=== PATIENT | male | born 1940 | race Caucasian/White ===

== ENCOUNTER 2025-06-22 10:23 | Observation (INO) ==
[2025-06-22] MEDS ORDERED: METOPROLOL TARTRATE 1 MG/ML VIAL IV PRN (10:30)
--- NOTE | 2025-06-22 10:45 | Emergency Department Note ---
Impression & Plan Atrial fibrillation with rapid ventricular response, Hypothyroidism, Acute kidney injury, Alzheimer's dementia ED Provider Note NAME: AUGUSTIN KRISHNAMURTHY AGE: 85 SEX: M : 1940 ARRIVES VIA: Ambulance INFORMANT: Patient, ED PROVIDER(S): Talon Orourke MD CHIEF COMPLAINT: Dizziness MEDICAL DECISION MAKING: Patient presents due to concern for dizziness. EKG did show A-fib with RVR. IV was established and blood work was obtained. Metoprolol 5 mg every 5 minutes ordered; however, as the patient's blood pressure was low ordered IV fluids and will defer rate control medication at this time. Blood work shows a normal white count hemoglobin of 13.1 with a platelet count of 128. The patient's kidney function with a creatinine of 1.75. Other electrolytes grossly unremarkable with negative troponin. The patient's chest x-ray is unremarkable. As this is new onset A-fib believe the patient would benefit from admission for further monitoring and starting of blood thinner. I did speak with the patient's family at bedside and they were comfortable plan of care as this patient he was initially hesitant. Heparin initially ordered but after discussion with the hospitalist they will prefer to start a DOAC and this was deferred to the inpatient service. Patient was admitted by Dr. Contreras. Discussion w/ other healthcare providers: Dr. Contreras inpatient medicine service Prior /Outside records reviewed: None Differential diagnosis: Benign positional vertigo, dehydration, hypovolemia, anemia, infection, hypoglycemia, electrolyte abnormalities, arrhythmia, tox among others were considered. Diagnostics, as interpreted by me: ECG: A-fib RVR, rate of 126, wide QRS, left bundle branch block pattern, normal axis. Prolonged QTc no obvious Sgarbossa criteria. Cardiac monitoring: An order was placed for continuous cardiac monitoring. The monitor shows a rate of 105 with tachycardic and irregular irregular rhythm. Patient was placed on pulse oximetry Medical decision rules: [id number] score Imaging studies: I informally interpreted the patient's chest x-ray does not show obvious pneumonia with formal report to follow. HPI: Patient presents due to concern for dizziness which she noticed around 02/14/1930 this morning. It was persistent this presented here. The patient is visiting from the [place] area. He denies any alcohol tobacco or drug use. The patient does take chronic medications he does have a history of thyroid replacement. Patient denies any known prior history of A-fib. Patient states that has been eating and drinking well. Patient denies any falls or trauma. PAST MEDICAL HISTORY: Alzheimer's, hypothyroidism PAST SURGICAL HISTORY: No pertinent past surgical history SOCIAL HISTORY: See Below HOME MEDICATIONS: See Below ALLERGIES: See Below VITALS: See Below PHYSICAL EXAMINATION: GENERAL: NAD, non-toxic. EYE EXAM: Normal conjunctiva. PERRL, no anisocoria and EOM's grossly intact w/o pain. OROPHARYNX: Moist mucus membranes, grossly normal dentition. NECK: Trachea midline, no stridor. LUNGS: Clear to auscultation. Normal chest wall mechanics. HEART: Irregularly irregular and tachycardic, no MRG. ABDOMEN: Abdomen soft, non-tender, no masses, no rebound or guarding. BACK: No CVA TTP. SKIN: No rashes and no bruising. UPPER EXTREMITIES: Upper extremities are grossly normal. LOWER EXTREMITIES: Grossly normal, no edema. NEURO EXAM: Awake and alert, follows commands, no obvious facial asymmetry, normal speech, moves all 4 extremities. 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 Alzheimer's dementia (Acute) Hypothyroidism (Acute) Acute kidney injury (Acute) Atrial fibrillation with rapid ventricular response (Acute) Social History Smoking Status: Unknown if ever smoked Preferred Language: Frisian Feels Safe at Home: Yes Home Meds Home Medications Medication Instructions Recorded Confirmed donepezil 10 mg tablet 10 mg PO DAILY 06/22/25 06/22/25 gabapentin 100 mg capsule 200 mg PO HS 06/22/25 06/22/25 levothyroxine 25 mcg tablet 25 mcg PO QAM 06/22/25 06/22/25 memantine 14 mg capsule 14 mg PO DAILY 06/22/25 06/22/25 sprinkle,extended release 24hr Results & Data (ED) Vital Signs Vital Signs - 24 hr 06/22/25 10:30 06/22/25 10:30 06/22/25 10:45 Pulse Rate 114 H Pulse Rate [Apical] 114 H 113 H Respiratory Rate 20 20 20 Blood Pressure 74/45 L Blood Pressure [Right Arm] 74/45 L 94/61 L Blood Pressure Mean 54 Blood Pressure Mean [Right Arm] 54 72 Pulse Oximetry 98 98 100 Oxygen Delivery Method Room Air Room Air Room Air Sepsis Recent Fever Within 48 Hours No Sepsis New/Unexplained Change in Mental Status Yes Sepsis Action Taken by Nursing Physician Notified 06/22/25 11:00 06/22/25 12:05 Pulse Rate 112 H Pulse Rate [Apical] 105 H Respiratory Rate 16 Blood Pressure Blood Pressure [Right Arm] 93/59 L Blood Pressure Mean Blood Pressure Mean [Right Arm] 70 Pulse Oximetry 97 Oxygen Delivery Method Room Air Sepsis Recent Fever Within 48 Hours Sepsis New/Unexplained Change in Mental Status Sepsis Action Taken by [facility] Medications Current Medication List: was personally reviewed by me Laboratory Data Attestation: I reviewed the patient's lab results. 06/22/25 10:32 06/22/25 10:32 Lab Results 06/22/25 06/22/25 Range/Units 10:32 10:42 WBC 6.70 (4.8-10.8) K/ul RBC 4.26 L (4.70-6.10) M/uL Hgb 13.1 L (14.0-18.0) g/dl POC Hgb 13.6 L (14.0-18.0) g/dl Hct 40.4 L (42.0-52.0) % POC Hct 40 L (42-52) % MCV 94.8 (80.0-100.0) fL MCH 30.8 (25.0-34.0) pg MCHC 32.4 (32.0-36.0) g/dL RDW Std Deviation 49.5 H (36.4-46.3) fL RDW Coeff of Marilee 14.2 (11.5-14.5) % Plt Count 128 L (130-400) K/uL MPV 11.7 (9.4-12.4) fL Immature Gran % (Auto) 0.3 % Neut % (Auto) 67.0 % Lymph % (Auto) 19.7 % Reeves % (Auto) 10.4 % Eos % (Auto) 2.2 % Baso % (Auto) 0.4 % Neut # (Auto) 4.48 (1.40-6.50) K/uL Lymph # (Auto) 1.32 (1.20-3.40) K/uL Reeves # (Auto) 0.70 H (0.11-0.59) K/uL Eos # (Auto) 0.15 (0.00-0.50) K/uL Baso # (Auto) 0.03 (0.00-0.20) K/uL Immature Gran # (Auto) 0.02 (0.01-0.20) K/uL PT 11.2 (9.0-12.0) Seconds INR 1.1 (0.9-1.1) APTT 26 (21-31) Seconds PTT Ratio 1.0 POC Sodium 141 (135-144) mmol/L Sodium 139 (136-145) mmol/L POC Potassium 4.6 (3.3-5.0) mmol/L Potassium 4.3 (3.5-5.1) mmol/L POC Chloride 104 (101-112) mmol/L Chloride 107 (98-107) mmol/L Carbon Dioxide 30 (21-32) mmol/L POC Total CO2 27 (24-31) mmol/L Anion Gap 2 L (3-11) POC Anion Gap 15.0 L (16-25) mmol/L POC BUN 31 H (7-18) mg/dl BUN 30 H (6-23) mg/dl Creatinine 1.75 H (0.6-1.4) mg/dl POC Creatinine 1.8 H (0.6-1.3) mg/dl Est Cr Clr Drug Dosing 28.0 ml/min eGFR 37.45 BUN/Creatinine Ratio 17.1 (10-20) Glucose 98 (70-99(Fasting)) mg/dl POC Glucose (other) 92 (70-99) mg/dl Calcium 9.4 (8.6-10.3) mg/dl POC Ioniz Calcium Uriah 1.19 (1.12-1.32) mmol/l Magnesium 2.0 (1.7-2.4) mg/dl Total Bilirubin 0.6 (0.2-1.0) mg/dl AST 26 (13-39) U/L ALT 19 (7-52) U/L Alkaline Phosphatase 67 (34-104) U/L Troponin I High Sens 11.6 (0-20) pg/ml Total Protein 6.1 (6.0-8.3) gm/dl Albumin 3.7 (3.4-5.0) gm/dl Globulin 2.4 L (2.5-4.0) gm/dl Albumin/Globulin Ratio 1.5 (0.9-2) TSH 3.278 (0.300-4.500) uIu/ml Administered Medications Sodium Chloride (Nss) 1,000 mls @ 80 mls/hr IV .[id number] PAUL Stop: 06/25/25 15:03 Last Admin: 06/22/25 15:17 Dose: 80 mls/hr Documented By: DTT Discontinued Medications Heparin Sodium/Dextrose (Heparin Iv Adult Wt-Based Low-Dose *No* Initial Bolus Protocol) 1 each IV ONE STA; Protocol Stop: 06/22/25 12:14 Last Admin: 06/22/25 12:35 Dose: Not Given Documented By: CC Sodium Chloride (Nss) 1,000 mls @ 999 mls/hr IV .Q1H1M ONE Stop: 06/22/25 12:16 Last Infusion: 06/22/25 11:50 Dose: Infused Documented By: amg Admin: 06/22/25 11:21 Dose: 999 mls/hr Documented By: amg Sodium Chloride (Nss) 500 mls @ 999 mls/hr IV .Q31M ONE Stop: 06/22/25 12:55 Last Infusion: 06/22/25 15:05 Dose: Infused Documented By: Admin: 06/22/25 12:32 Dose: 999 mls/hr Documented By: amg Imaging Data Radiologist's Impression: Chest X-Ray 06/22/25 10:30 HISTORY: Dysrhythmia TECHNIQUE: Portable AP radiograph of the chest. COMPARISON: None. FINDINGS: shield operator leads overlie the chest. No focal lung consolidation. No pneumothorax or pleural effusion. Normal heart size. Left-sided aortic arch containing atherosclerotic calcification. Midline trachea. No acute osseous abnormality. The included upper abdomen is unremarkable. IMPRESSION: No acute cardiopulmonary findings. Electronically signed by Filemon Tovar 06-22-2025 11:31 AM Discharge Plan Visit Data Chief Complaint: Weakness Stated Complaint: WEAKNESS ED Provider: Talon Orourke Discharge Problem: Atrial fibrillation with rapid ventricular response, Hypothyroidism, Acute kidney injury, Alzheimer's dementia Patient Disposition: Admitted As Inpatient Condition: Good Discharge Instructions Interventions: ED Discharge Assessment Last Done: 06/22/25 14:37 Discharge Problem: Hypothyroidism Qualifiers: Hypothyroidism type: unspecified Qualified Code(s): E03.9 - Hypothyroidism, unspecified Alzheimer's dementia Qualifiers: Alzheimer's disease onset: unspecified onset Dementia severity: unspecified severity Dementia behavioral or psychological symptom: without behavioral, psychotic, or mood disturbance or anxiety Qualified Code(s): G30.9 - Alzheimer's disease, unspecified; F02.80 - Dementia in other diseases classified elsewhere, unspecified severity, without behavioral disturbance, psychotic disturbance, mood disturbance, and anxiety
[2025-06-22 10:59] LABS: Hematocrit (blood only) 40.4 % (42.0-52.0); Hemoglobin 13.1 g/dl (14.0-18.0); Immature Granulocytes # (auto) 0.02 K/uL (0.01-0.20); Immature Granulocytes % (auto) 0.3 %; Mean Corpuscular Hemoglobin 30.8 pg (25.0-34.0); Mean Corpuscular Volume 94.8 fL (80.0-100.0); Platelet Count 128 K/uL (130-400); RDW Standard Deviation 49.5 fL (36.4-46.3); Red Blood Count 4.26 M/uL (4.70-6.10); White Blood Count 6.70 K/ul (4.8-10.8)
[2025-06-22 11:17] LABS: Alanine Aminotransferase 19.0 U/L (7-52); Albumin Globulin Ratio 1.5 (0.9-2); Albumin Level 3.7 gm/dl (3.4-5.0); Alkaline Phosphatase 67.0 U/L (34-104); Anion Gap 2.0 (3-11); Bilirubin,Total 0.6 mg/dl (0.2-1.0); Blood Urea Nitrogen 30.0 mg/dl (6-23); Calcium 9.4 mg/dl (8.6-10.3); Carbon Dioxide 30.0 mmol/L (21-32); Chloride 107.0 mmol/L (98-107); Creatinine Clr Calc Pharmacy 28.0 ml/min; Globulin 2.4 gm/dl (2.5-4.0); Glucose 98.0 mg/dl (70-99(Fasting)); Magnesium 2.0 mg/dl (1.7-2.4); Potassium 4.3 mmol/L (3.5-5.1); Sodium 139.0 mmol/L (136-145); Total Protein 6.1 gm/dl (6.0-8.3)
[2025-06-22] MEDS: SODIUM CHLORIDE 0.9% 1,000 ML IV ONE (11:21)
[2025-06-22 11:25] LABS: INR 1.1 (0.9-1.1); Partial Thromboplastin Time 26 Seconds (21-31); Prothrombin Time 11.2 Seconds (9.0-12.0)
[2025-06-22 11:32] LABS: Thyroid Stimulating Hormone 3.278 uIu/ml (0.300-4.500)
--- NOTE | 2025-06-22 11:33 | XRay Report ---
HISTORY: Dysrhythmia TECHNIQUE: Portable AP radiograph of the chest. COMPARISON: None. FINDINGS: bus driver/monitor leads overlie the chest. No focal lung consolidation. No pneumothorax or pleural effusion. Normal heart size. Left-sided aortic arch containing atherosclerotic calcification. Midline trachea. No acute osseous abnormality. The included upper abdomen is unremarkable. IMPRESSION: No acute cardiopulmonary findings. Electronically signed by Filemon Tovar 06-22-2025 11:31 AM
[2025-06-22] MEDS ORDERED: HEPARIN 25000 UNIT/500 ML D5W 25,000 UNITS/500 ML BAG IV SCH (12:30)
[2025-06-22] MEDS: SODIUM CHLORIDE 0.9% 500 ML IV ONE (12:32)
[2025-06-22] MEDS: Heparin IV Adult Wt-Based Low-Dose *NO* INITIAL Bolus Protocol IV STA (12:35)
--- NOTE | 2025-06-22 13:10 | History & Physical Report ---
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 Patient is at risk for further decompensation and needs hospital level care and interventions. Admit to monitored setting Patient's blood pressure and heart rate has improved with hydration. Will give additional IV fluids and continue to monitor rate Pending patient's blood pressure response to hydration and will consider starting metoprolol versus digoxin for further rate control. Patient reports no previous history of kidney dysfunction, therefore suspect acute kidney injury, possibly some dehydration related. Will see how his kidney function responds to hydration. If no significant proved meant will need to do further investigation. Bladder scan to rule out outlet obstruction Start anticoagulation with Eliquis dosed appropriately for age and renal function for secondary stroke prevention Echocardiogram Continue outpatient medications, TSH is therapeutic Suspect patient's thrombocytopenia may be due to his known been, will continue to monitor intermittently Discussed advanced directives with patient and at bedside, reports that they have a living will and DNR status. History of Present Illness Chief Complaint: Lightheadedness and dizziness Primary Care Provider: NO PCP Patient is an 85-year-old gentleman with very little past medical history is in [place] visiting family. Patient states he woke this morning and felt a little lightheaded and dizzy so much so that he did not feel safe enough taking a shower. Went to get some breakfast and take his morning Synthroid and continue to feel a little bit off and that is what prompted him to seek and call EMS. In the emergency room patient was noted to be in atrial fibrillation with RVR. Patient reports never having issues with his heart or arrhythmias in the past. Also noted to have some acute kidney dysfunction. Patient was also somewhat hypotensive which did respond to some initial early fluid resuscitation. Patient was referred to our service for ongoing care and manag ement. Time my evaluation the patient states he is feeling better. Lightheadedness and dizziness has resolved. His blood pressure has improved with 1 L of fluid and MAP is greater than 65. He denies any chest pain. He states that he felt maybe a little bit of palpitations this morning when he was feeling lightheaded. States that otherwise he has been feeling well. No fever chills. No cough or cold symptoms. No chest pain with exertion. No shortness of breath. Family at the bedside states that he has been eating and drinking well. He reports no new problems with bowels or bladder. No swelling in his hands arms legs or feet. He states that he has never been told that he has had an arrhythmia or a weak heart or any type of heart problems. States that he has never been told that he has kidney dysfunction or weak kidney function. Patient does not use alcohol, beer or tobacco products Patient has a significant past medical history of hypothyroidism, Alzheimer's dementia, restless leg Family history is significant for both parents with some type of cardiac condition. 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 Sclera clear Neck: Soft, no adenopathy Lungs: Clear to auscultation, decreased, no wheezes rales or rhonchi CV: S1-S2, irregular, tachycardic Abdomen: Soft, nontender, nondistended Extremities: No significant edema Musculoskeletal: No significant joint tenderness Neuro: No focal deficits Psych: Cooperative, normal mood Results & Data Results & Data Vital Signs (Past 12 Hours) Vital Signs Pulse Pulse Resp BP BP Pulse Ox O2 Del Method 06/22/25 12:05 112 H 06/22/25 11:00 105 H 16 93/59 L 97 Room Air 06/22/25 10:45 113 H 20 94/61 L 100 Room Air 06/22/25 10:30 114 H 20 74/45 L 98 Room Air 06/22/25 10:30 114 H 20 74/45 L 98 Room Air Diagnostic Findings Reviewed imaging, laboratory and diagnostic studies. Pertinent findings as below. Personally viewed EKG, irregular, atrial fibrillation Personally reviewed chest x-ray, no consolidative abnormalities, no evidence of edema. WBC 6.7 Hemoglobin 13.1 Platelets of 128 Coags within normal range Electrolytes within normal range BUN 30 Creatinine 1.75 LFTs within normal range Troponin normal at 11.6 TSH 3.2 Code Status & VTE Plan VTE Prophylaxis Plan VTE Prophylaxis will be ordered: Yes Reason for no VTE drug order: Contraindicated
[2025-06-22] MEDS ORDERED: MELATONIN 3 MG TAB PO PRN (15:04)
[2025-06-22] MEDS ORDERED: ONDANSETRON INJ 2 MG/ML 2 ML VIAL IV PRN (15:04)
[2025-06-22] MEDS ORDERED: ALUMINUM/MAGNESIUM SUSP 30 ML UDC PO PRN (15:04)
[2025-06-22] MEDS ORDERED: ACETAMINOPHEN 325 MG TAB PO PRN (15:04)
[2025-06-22] MEDS ORDERED: POLYETHYLENE (MIRALAX) 17 GM PACK PO PRN (15:04)
[2025-06-22] MEDS: SODIUM CHLORIDE 0.9% 1,000 ML IV SCH (15:17)
--- NOTE | 2025-06-22 16:08 | XCELERA ---
[id number]
--- NOTE | 2025-06-22 21:58 | Electrocardiogram Report ---
Test Reason : Blood Pressure : */* mmHG Vent. Rate : 126 BPM Atrial Rate : * BPM P-R Int : * ms QRS Dur : 122 ms QT Int : 358 ms P-R-T Axes : * 37 112 degrees QTcB Int : 518 ms Atrial fibrillation with rapid ventricular response Left bundle branch block Abnormal ECG No previous ECGs available Confirmed by Moises Carrillo ([id number]) on 06/22/2025 9:58:28 PM Referred By: REFERRED SELF Confirmed By: Moises Carrillo
[2025-06-22] MEDS: APIXABAN 2.5 MG TAB PO SCH (22:10)
[2025-06-22] MEDS: GABAPENTIN 100 MG CAP PO SCH (22:10)
[2025-06-23] MEDS: LEVOTHYROXINE SODIUM 25 MCG TABLET PO SCH (06:29)
[2025-06-23 07:08] LABS: Anion Gap 5.0 (3-11); Blood Urea Nitrogen 26.0 mg/dl (6-23); Calcium 8.4 mg/dl (8.6-10.3); Carbon Dioxide 24.0 mmol/L (21-32); Chloride 112.0 mmol/L (98-107); Creatinine Clr Calc Pharmacy 29.9 ml/min; Glucose 85.0 mg/dl (70-99(Fasting)); Magnesium 1.8 mg/dl (1.7-2.4); Potassium 4.4 mmol/L (3.5-5.1); Sodium 141.0 mmol/L (136-145)
[2025-06-23] MEDS: MAGNESIUM OXIDE 400 MG TAB PO SCH (09:27)
[2025-06-23] MEDS: DONEPEZIL HCL 10 MG TAB PO SCH (09:27)
[2025-06-23] MEDS: MEMANTINE HCL 5 MG TAB PO SCH (09:27)
[2025-06-23 10:59] VITALS: RESP 17; TEMP 97.9; O2SAT 99
--- NOTE | 2025-06-23 13:58 | Communication Note ---
Date of Service: June 23, 2025 Code 44 attestation: The chart of Terry Kelsey 1940 is reviewed and noted appropriate decisions discharged physician. By CMS guidelines, a determination that the admission or continued stay is not medically necessary has been made by a member of the UR committee and a physician for this hospital stay, therefore a Code 44 will be completed and the Inpatient admission will be changed to outpatient. Dr Louie Solitario Member UR Committee
--- NOTE | 2025-06-23 13:59 | Discharge Summary ---
Date of Service June 23, 2025 Admission HPI Per Admitting Provider Patient is an 85-year-old gentleman with very little past medical history is in [place] visiting family. Patient states he woke this morning and felt a little lightheaded and dizzy so much so that he did not feel safe enough taking a shower. Went to get some breakfast and take his morning Synthroid and continue to feel a little bit off and that is what prompted him to seek and call EMS. In the emergency room patient was noted to be in atrial fibrillation with RVR. Patient reports never having issues with his heart or arrhythmias in the past. Also noted to have some acute kidney dysfunction. Patient was also somewhat hypotensive which did respond to some initial early fluid resuscitation. Patient was referred to our service for ongoing care and management. Time my evaluation the patient states he is feeling better. Lightheadedness and dizziness has resolved. His blood pressure has improved with 1 L of fluid and MAP is greater than 65. He denies any chest pain. He states that he felt maybe a little bit of palpitations this morning when he was feeling lightheaded. States that otherwise he has been feeling well. No fever chills. No cough or cold symptoms. No chest pain with exertion. No shortness of breath. Family at the bedside states that he has been eating and drinking well. He reports no new problems with bowels or bladder. No swelling in his hands arms legs or feet. He states that he has never been told that he has had an arrhythmia or a weak heart or any type of heart problems. States that he has never been told that he has kidney dysfunction or weak kidney function. Patient does not use alcohol, beer or tobacco products Patient has a significant past medical history of hypothyroidism, Alzheimer's dementia, restless leg Family history is significant for both parents with some type of cardiac condition. Admission Exam Per Admitting Provider Constitutional: Alert, no distress, nontoxic HEENT: Mucous membranes moist. Sclera clear Neck: Soft, no adenopathy Lungs: Clear to auscultation, decreased, no wheezes rales or rhonchi CV: S1-S2, irregular, tachycardic Abdomen: Soft, nontender, nondistended Extremities: No significant edema Musculoskeletal: No significant joint tenderness Neuro: No focal deficits Psych: Cooperative, normal mood Principal Diagnosis Afib RVR Discharge Exam Constitutional: WD/WN elderly M in NAD HEENT: NC/AT. Mucous membranes moist. Sclera clear Neck: Supple. Lungs: Clear to auscultation, decreased, no wheezes rales or rhonchi CV: S1-S2, bradycardic HR 50s Abdomen: Soft, nontender, nondistended Extremities: No significant edema, moves extremities Musculoskeletal: No significant joint tenderness Neuro: awake, alert, answers appropriately, no facial asymmetry, speech fluent, moves extremities Psych: Cooperative, normal mood Discharge Data Allergies Allergy/AdvReac Type Severity Reaction Status Date / Time Penicillins Allergy Unknown Verified 06/23/25 08:06 Consultations 06/22/25 12:42 ED Decision to Admit Stat Hospital Course (1) Atrial fibrillation with rapid ventricular response: New onset (2) Acute kidney injury: (3) 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 Pt and family report "hx of mildly elevated creatinine", but they don't know the number / baseline creatinine Cr on admission 1.75, received IVF, current Cr 1.6 Pt was admitted to telemetry for further monitoring Patient's blood pressure and heart rate has improved with hydration. Pt converted to sinus bradycardia after hydration. HR in 50s overnight and today Started anticoagulation with Eliquis dosed appropriately for age and renal function for secondary stroke prevention TSH 3.2 - normal Echocardiogram obtained - LV syst. function is normal, LV EF 50-55%, RV is mild to moderately reduced. RA is moderately dilated. Mild aortic regurg. Mild valvular . Mild pulmonic valv. regurg. Mild mitral regurg., RV syst. pressure is normal. 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 There is mild to moderate tricuspid regurg. 06/23 Pt feels well, awake, alert, oriented, ambulating. Denies any chest pain, shortness of breath. Family present at the bedside. Plan to drive to [place] possibly today. Will send Rx for Eliquis to [facility] in [place]. Pt and family aware pt will need close follow up with pcp and cardiology. Total Time Total Time Spent Total Time Spent (In Minutes): 40 Discharge Plan Discharge Items Patient Disposition: Home - Self-Care Reason For Visit: A-FIB RVR Discharge Diagnosis: Afib RVR Condition on Discharge: Good Activity: Per Instructions section Non-emergency contact: Primary Care Provider and [employer]iano [employer]isher Call non-emergency contact if: you have any medication questions and your symptoms worsen Follow-up/Referrals: ansley Guadarrama [Other] Diet: Heart Healthy Addtl Attending Provider Instructions: Follow up with your primary care doctor and intake assessor. Take Eliquis 2.5 mg twice a day. This is a blood thinner. You will need blood work done - to have your kidney function checked. Make sure to stay well hydrated. Recommend outpatient ZIO monitoring (inspection manager). Pending Studies at Discharge: No Stand-Alone Forms: [facility] [employer], Smoking Cessation Medications and DC Order Prescriptions: New magnesium oxide 400 mg (241.3 mg magnesium) Tablet 400 mg PO BID Qty: 20 0RF Eliquis 2.5 mg Tablet 2.5 mg PO BID Qty: 60 0RF Continued donepezil 10 mg tablet 10 mg PO DAILY levothyroxine 25 mcg tablet 25 mcg PO QAM gabapentin 100 mg capsule 200 mg PO HS memantine 14 mg capsule,sprinkle,ER 24hr 14 mg PO DAILY Discharge Orders: Discharge Order (Routine); Ordered 06/23/25 Ordered By: Ilia Maria Admission Data Admit Date/Time: 06/22/25 13:00 Attending Provider: Ilia Maria Admit Provider: Denny Esteban Primary Care Provider: ansley Guadarrama Other Providers: Denny Esteban
[2025-06-23 14:20] VITALS: BP 114/67; PULSE 50
--- NOTE | 2025-06-23 15:24 | Electrocardiogram Report ---
Test Reason : Blood Pressure : */* mmHG Vent. Rate : 52 BPM Atrial Rate : 52 BPM P-R Int : 160 ms QRS Dur : 132 ms QT Int : 478 ms P-R-T Axes : 44 37 83 degrees QTcB Int : 444 ms Sinus bradycardia Left bundle branch block Abnormal ECG When compared with ECG of 22-Jun-2025 10:29, Sinus rhythm has replaced Atrial fibrillation Vent. rate has decreased by 74 bpm Confirmed by Herminio Hauser ([id number]) on 06/23/2025 3:24:15 PM Referred By: REFERRED SELF Confirmed By: Herminio Hauser
== END 2025-06-23 15:50 | disposition home or self-care (01) | DRG 309 ==
LOC: ED 10:23 → SUATTDRO 13:00 → 2S 13:00 → INTOOBSV 13:00 → 2S 14:37